=== PATIENT | male | born 1975 | race Asian ===

== ENCOUNTER 2020-11-03 17:14 | Emergency (ER) | payer OTHER ==
[~2020-11-03] VITALS: Ht 177.8 cm; Wt 95.3 kg
[2020-11-03 17:15] VITALS: BP 141/99
[2020-11-03] MEDS ORDERED: COZAAR 50 MG TA50 MG PO (19:15)
[2020-11-03] MEDS ORDERED: IBUPROFEN 600600 M1 PO (19:55)
[2020-11-03] MEDS ORDERED: FLEXERIL PO (19:55)
== END 2020-11-03 20:10 | disposition home or self-care (01) ==
LOC: ER 17:14
DX: S16.1XXA Strain of muscle, fascia and tendon at neck level, initial encounter (principal); S39.012A Strain of muscle, fascia and tendon of lower back, initial encounter; S46.911A Strain of unspecified muscle, fascia and tendon at shoulder and upper arm level, right arm, initial encounter; V49.49XA Driver injured in collision with other motor vehicles in traffic accident, initial encounter; Y93.I9 Activity, other involving external motion; Y92.413 State road as the place of occurrence of the external cause; Y99.8 Other external cause status